=== PATIENT | female | born 1985 | race Caucasian/White ===

== ENCOUNTER 2018-07-06 22:15 | Emergency (ER) | payer BC ==
[2018-07-06] MEDS ORDERED: ASPIRIN 81 MG CHEWABLE TABLET PO ONE (22:31)
[2018-07-06 22:34] LABS: BASO % 0.5 % (0-6); EOS % 1.3 % (0-6); GRAN % 58.1 % (47-80); HEMATOCRIT 42.3 % (35.0-47.0); HEMOGLOBIN 13.5 gm/dl (11.6-16.0); LYMPH % 32.7 % (16-45); MEAN CELL VOLUME 95.5 fl (81-97); MEAN CORPUSCULAR HEMOGLOBIN 30.5 pg (27-33); MEAN CORPUSCULAR HGB CONC 31.9 g/dl (32-36); MEAN PLATELET VOLUME 9.5 fl (7.4-10.4); MONO % 7.4 % (0-9); PLATELET COUNT 375 K/uL (130-400); RED BLOOD COUNT 4.43 M/uL (3.80-5.40); RED CELL DISTRIBUTION WIDTH 13.5 % (11.5-14.5); WHITE BLOOD COUNT W/O DIFF 9.6 K/uL (4.2-12.2)
--- NOTE | 2018-07-06 22:38 | Emergency Department Record ---
History of Present Illness - General Chief Complaint: Abdominal Pain Stated Complaint: VARSHA,LIGHT HEADEDNESS,CHEST PAIN Time Seen by Provider: 07/06/18 22:30 Source: Patient Mode of Arrival: Ambulatory Limitations: No limitations - History of Present Illness Initial Comments: Pt to the ED with a complaint of a sensation of feeling her heart "palpitations ". There is mild chest pressure but no nausea, mild VARSHA "like my exercise asthma". No symptoms at this time. Hx of similar in past. Also has had discomfort in both arms for a "few weeks" without trauma or injury. No SHELL, no ABD. No cough, no fever, no N/V. Pt is mother of 2 young children. No hx tobacco, HTN, DM, family hx of heart ds. No drug use. No feeling of light headed or dizzy. Onset/Timin -: Hour(s) Associated Symptoms: Diarrhea Treatments Prior to Arrival: Antacids - Related Data LMP (females 10-50): Last week Patient : No Home Medications Medication Instructions Recorded Confirmed Last Taken Cetirizine HCl [Zyrtec] 10 mg PO DAILY 07/06/18 07/06/18 07/06/18 Norgestrel-Ethinyl Estradiol 1 each PO DAILY 07/06/18 07/06/18 07/06/18 [Cryselle-28 Tablet] Rizatriptan Benzoate [Maxalt] 10 mg PO ASDIR PRN 07/06/18 07/06/18 Unknown Allergies Allergy/AdvReac Type Severity Reaction Status Date / Time codeine AdvReac VOMITING Verified 07/06/18 22:29 Travel Screening - Travel/Exposure Within Last 30 Days Have you traveled within the last 30 days?: No - Travel/Exposure Within Last Year Have you traveled outside the [place] in the last year?: No - Additonal Travel Details Have you been exposed to anyone with a communicable illness?: No - Travel Symptoms Symptom Screening: None Review of Systems Constitutional: Denies: Chills, Fever, Weakness Eyes: Denies: Eye discharge, Photophobia, Vision change ENT: Denies: Congestion, Ear pain, Throat pain Respiratory: Denies: Cough, Dyspnea, Wheezes Cardiovascular: Reports: As per HPI, Chest pain, Palpitations. Denies: Syncope Endocrine: Denies: Fatigue, Polyuria Gastrointestinal: Denies: Abdominal pain, Nausea, Vomiting Genitourinary: Denies: Abnormal menses Musculoskeletal: Denies: Arthralgia, Back pain Skin: Denies: Bruising, Rash Neurological: Denies: Abnormal gait, Headache, Numbness, Weakness Psychiatric: Denies: Anxiety Hematological/Lymphatic: Denies: Anemia Past Medical History - SOCIAL HISTORY Smoking Status: Never smoker Alcohol Use: Rare Drug Use: None - RESPIRATORY Hx Respiratory Disorders: Yes Hx Asthma: Yes (exercise) - CARDIOVASCULAR Hx Cardio Disorders: Yes Hx Palpitations: Yes - NEURO Hx Neuro Disorders: No - GI Hx GI Disorders: No - Hx Genitourinary Disorders: No - ENDOCRINE Hx Endocrine Disorders: No - MUSCULOSKELETAL Hx Musculoskeletal Disorders: No - PSYCH Hx Psych Problems: Yes Hx Anxiety: Yes Family Medical History Any Significant Family History?: Yes Hx Heart Disease: Father Physical Exam - General General Appearance: Alert, Oriented x3, Cooperative, No acute distress - Head Head exam: Normal inspection - Eye Eye exam: Normal appearance, PERRL - ENT ENT exam: Normal exam, Mucous membranes moist, Normal external ear exam, Normal orophraynx, TM's normal bilaterally - Neck Neck exam: Normal inspection, Full ROM. negative: Tenderness - Respiratory Respiratory exam: Normal lung sounds bilaterally. negative: Respiratory distress - Cardiovascular Cardiovascular Exam: Regular rate, Normal rhythm, Normal heart sounds. negative : Irregular rhythm, Tachycardia Peripheral Pulses: 2+: Radial (R), Radial (L) - GI/Abdominal GI/Abdominal exam: Soft, Normal bowel sounds. negative: Tenderness - Extremities Extremities exam: Normal inspection, Full ROM, Normal capillary refill. negative: Calf tenderness, Tenderness - Back Back exam: Reports: Normal inspection - Neurological Neurological exam: Alert, Normal gait, Oriented X3 - Psychiatric Psychiatric exam: Normal affect, Normal mood - Skin Skin exam: Normal color. negative: Rash Course Vital Signs 07/06/18 22:19 Pulse Rate 88 Blood Pressure 138/115 - Reevaluation(s) Reevaluation #1: 07/06/18 23:16 Pt with initial EKG and labs normal. Trop is normal. Resting without pain. We will do repeat Trop at 1AM. Pt aware. Reevaluation #2: 07/07/18 01:24 Repeat interval Trop remains negative. Long talk with patient. No symptoms here in ED. Plan is for home with close follow up with Family doctor. Returning here is any new symptoms or concerns. Procedures - EKG Initial Date: 07/06/18 Time: 22:33 EKG: Abnormal EKG (Sinus tach at 105, incomp RBBB) Medical Decision Making - Lab Data Result diagrams: 07/06/18 22:33 07/06/18 22:34 Disposition Disposition: Discharge Clinical Impression: Heart palpitations Clinical Impression: (Ruled Out): Chest pain Disposition: Home, Self-Care Condition: (2) Stable Instructions: Heart Palpitations (ED) Additional Instructions: Decrease caffeine consumption. Rest. Follow up with your Family Doctors in 1-2 days for further evaluation. Return to the ED sooner if any symptoms or concerns. Forms: Patient Portal Access Time of Disposition: 01:25 Quality - Quality Measures Quality Measures: N/A - Blood Pressure Screening Does Patient Have Any of the Following: No Blood Pressure Classification: Hypertensive Reading Systolic Measurement: 138 Diastolic Measurement: 115 Screening for High Blood Pressure: < Pre-Hypertensive BP, F/U Documented > [ [id number]] Pre-Hypertensive Follow-up Interventions: Follow-up with rescreen every year.
[2018-07-06 22:45] LABS: BLOOD UREA NITROGEN 9 mg/dL (6-20); CREATININE 0.7 mg/dL (0.5-0.9); EST GLOMERULAR FILTRATION RATE > 60 mL/min
[2018-07-06 22:46] LABS: TOTAL PROTEIN 7.6 g/dL (6.6-8.7)
[2018-07-06 22:48] LABS: GLUCOSE,RANDOM 104 mg/dL (74-109)
[2018-07-06 22:50] LABS: ALT/SGPT 19 U/L (<33); AST/SGOT 16 U/L (10.0-35.0)
[2018-07-06 22:51] LABS: ALB/GLOB RATIO 1.3 (1.1-1.8); ALBUMIN 4.3 g/dL (4.0-5.0); ALKALINE PHOSPHATASE 74 U/L (35-104)
[2018-07-06 23:02] LABS: THYROID STIMULATING HORMONE 4.68 uIU/mL (0.270-4.20)
== END 2018-07-07 01:36 | disposition home or self-care (01) ==
LOC: ER 22:15
DX: R00.2 Palpitations (principal); R07.89 Other chest pain; R06.00 Dyspnea, unspecified; R19.7 Diarrhea, unspecified; R51 Headache
CPT/HCPCS: 71046; 80053; 84443; 84484; 84703; 85025; 85379; 93005; 93010; 99284